=== PATIENT | female | born 1960 | race African-American/Black ===

== ENCOUNTER 2017-05-28 05:54 | Day surgery (SDC) | payer OTHER ==
[~2017-05-28] VITALS: Ht 162.6 cm; Wt 127.9 kg
--- NOTE | ~2017-05-28 | O ---
[facility] [place] [address] OPERATIVE REPORT Name: BRIGHT KELLY Room #: DEP [facility].#: [id number] Admission: 05/28/17 Attend Phys: Preston Arrington MD Discharge: 05/29/17 Date of : 62 Report #: [id number] THIS REPORT FOR: //name// CC: Terell Arrington DATE OF SERVICE: 05/28/2017 SOCK EXAMINER: None. PREOPERATIVE DIAGNOSIS: Unilateral right upper lid ptosis. POSTOPERATIVE DIAGNOSIS: Unilateral right upper lid ptosis. OPERATION PERFORMED: Unilateral right upper lid ptosis repair. ANESTHESIA: Local anesthesia with IV sedation. COMPLICATIONS: None. INDICATIONS FOR SURGERY: This patient has right upper lid ptosis with superior visual field loss in excess of 30%. Visual field testing shows an improvement in the superior visual field loss with elevation of the eyelid margin into a normal anatomic location. The current procedure is undertaken in order to improve the patient's visual function. Informed consent was obtained to include but not limited to the potential risks for bleeding, scarring, infection, loss of vision, failure to improve the problem, need for further surgery and need for adjustment of lid height. DESCRIPTION OF PROCEDURE: The patient was taken to the operating room, where a right upper lid crease was drawn with a skin marking pen. The incision was then made with Beny scissors and dissected down to the orbital septum. Hemostasis was achieved with a monopolar cautery as it was throughout the case. The orbital septum was then entered and the preaponeurotic fat identified. The levator aponeurosis was then disinserted from the anterior surface of the tarsal plate and dissected free in the avascular Menezes's muscle plane. The aponeurosis was then advanced onto the anterior surface of the tarsal plate and reattached with mattress double-arm 6-0 Novafil sutures, adjusting for height and contour. The redundant aponeurosis was then amputated. The upper lid crease was then reformed with interrupted 6-0 Chromic sutures. The skin was closed with interrupted 6-0 plain gut suture. The wound was then cleaned and dressed with ophthalmic antibiotic ointment. [address] [address] OPERATIVE REPORT Name: BRIGHT KELLY Room #: DEP [facility].#: [id number] Admission: 05/28/17 Attend Phys: Preston Arrington MD Discharge: 05/29/17 Date of : 62 Report #: [id number] The patient was then transported to the recovery area, having tolerated the procedure well with no anesthesia or operative complications being noted. <ELECTRONICALLY SIGNED> By: Pretson Arrington MD 06/01/17 0620 [id number] Preston Arrington MD /nt
[~2017-05-28 05:54] MED LIST: ACETAMINOPHEN325 M1; ALDACTONE50 MG PO; ASA5UEC PO; ASPIR 8181 MG PO; ASPIRIN EC81 M1 PO; AUGMENTIN 200-1 EACH PO; BACTRIM DS TAB1 EACH PO; BISOPROLOL FUM2.5 MG; CARVEDILOL12.5 MG PO; CARVEDILOL25 MG PO; CHLORHEXADINE120 M1; COREG PO; CRESTOR20 MG PO; DEMADEX20 MG PO; DIOVAN320 MG PO; DOXYCYCLINE 10100 M1 PO; FLAGYL500 MG PO; FLEXERIL PO; FUROSEMIDE; GLYCOLAX POWDER17 GM; HYDROCHLOROTH12.5 MG PO; HYDROCODONE-AP1 EA11; KEFLEX500 MG PO; MEDROLDOSEPACK PO; MINOCIN100 MG; MOM; NORCO 5-325 TA1 EACH PO; TEKTURNA300 MG PO; TORADOL 10 MG T10 MG PO; TRAMADOL 50 MG50 MG PO; ZANTAC 150MG T150 M1 PO; ZOFRAN 4 MG ORAL4 M1 DIS; ZYRTEC 10 MG TA10 M1 PO; [UNRECOGNIZED DRUG - OTHER]
[2017-05-28 11:29] LABS: CALCIUM 9.6 mg/dL (8.5-10.1); CREATININE 2.1 mg/dL (0.6-1.0); POTASSIUM 4.1 mmol/L (3.5-5.1)
[2017-05-28 11:30] VITALS: BP 151/63
[2017-05-28 11:34] LABS: ALBUMIN 3.5 g/dL (3.4-5.0); TOTAL BILIRUBIN 0.3 mg/dL (<0.1-1.0); TOTAL PROTEIN 8.6 g/dL (6.4-8.2)
== END 2017-05-29 15:38 | disposition home or self-care (01) ==
LOC: TBA 05:54 → OR 05:54 → TBA 06:20 → OR 11:13
PROVIDERS: Ophthalmology
DX: H02.401 Unspecified ptosis of right eyelid (principal); H53.40 Unspecified visual field defects; I12.9 Hypertensive chronic kidney disease with stage 1 through stage 4 chronic kidney disease, or unspecified chronic kidney disease; N18.3 Chronic kidney disease, stage 3 (moderate); G47.33 Obstructive sleep apnea (adult) (pediatric); Z98.890 Other specified postprocedural states; Z88.2 Allergy status to sulfonamides; Z85.528 Personal history of other malignant neoplasm of kidney; Z87.891 Personal history of nicotine dependence; Z88.6 Allergy status to analgesic agent; Z88.8 Allergy status to other drugs, medicaments and biological substances; Z79.82 Long term (current) use of aspirin; Z79.899 Other long term (current) drug therapy
CPT/HCPCS: 50010; 50101; 50386; 50398; 51636; 56528; 56531; 62110; 62850; 70005